=== PATIENT | male | born 1980 | race Caucasian/White ===

== ENCOUNTER 2019-01-10 08:36 | Emergency (ER) | payer BC ==
[~2019-01-10] VITALS: Ht 177.8 cm; Wt 72.6 kg
--- NOTE | 2019-01-10 08:44 | NUR ---
BIB SELF C/O NAUSEA AND VOMITING X5 STARTED 2 AM, +ABDOMINAL PAIN, ATE [facility] LAST NIGHT, TO ER BED 4, HOOKED TO MONITOR, NOTED DIAPHORETIC AND PALE, CHANGED TO HOSP GOWN, PROVIDED W WARM BLANKET, AWAITING MD RIVERS.
--- NOTE | 2019-01-10 08:55 | NUR ---
AT BEDSIDE FOR EVAL.
[2019-01-10] MEDS ORDERED: ONDANSETRON HCL/PF 4 MG/2 ML VIAL ONE (09:07)
[2019-01-10 09:08] LABS: BASOPHILS % (AUTO) 0.4 % (0.0-2.0); EOSINOPHILS % (AUTO) 0.4 % (0.0-6.0); HEMATOCRIT 49 % (39-51); HEMOGLOBIN 16.5 g/dL (13.5-17.5); LYMPHOCYTES # (AUTO) 0.6 /CMM (0.8-4.8); LYMPHOCYTES % (AUTO) 4.5 % (20.0-44.0); MEAN CORPUSCULAR HGB CONC 34 g/dl (31.0-36.0); MEAN CORPUSCULAR VOLUME 91 fL (80-96); MONOCYTES # (AUTO) 0.5 /CMM (0.1-1.30); MONOCYTES % (AUTO) 3.9 % (2.0-12.0); NEUTROPHILS # (AUTO) 12.5 /CMM (1.8-8.9); NEUTROPHILS % (AUTO) 90.8 % (43.0-81.0); PLATELET COUNT (AUTO) 246 /CMM (150-450); RED BLOOD CELL COUNT(AUTO) 5.35 MIL/uL (4.5-6.0); WHITE BLOOD COUNT (AUTO) 13.8 K/uL (4.3-11.0)
[2019-01-10] MEDS: IV NS 0.9% 1,000 ML BAG IV ONE (09:11)
[2019-01-10] MEDS: ONDANSETRON HCL/PF 4 MG/2 ML VIAL IVP ONE (09:11)
[2019-01-10 09:24] LABS: ALBUMIN 4.6 g/dL (3.4-5.0); BILIRUBIN,DIRECT 0.1 mg/dL (0.0-0.2); BILIRUBIN,TOTAL 0.8 mg/dL (0.2-1.0); CALCIUM, SERUM 9.6 mg/dL (8.5-10.1); CREATININE 1.4 mg/dL (0.6-1.3); POTASSIUM 4.1 mmol/L (3.5-5.1); TOTAL PROTEIN, SERUM 8.4 g/dL (6.4-8.2)
[2019-01-10 10:14] VITALS: BP 113/57
--- NOTE | 2019-01-10 10:14 | NUR ---
IV removed. Catheter intact and site benign. Pressure and 4x4 applied to site. No bleeding noted.Patient discharged to home in stable condition. Written and verbal after care instructions given. Patient verbalizes understanding of instruction.
== END 2019-01-10 10:15 | disposition home or self-care (01) ==
LOC: ER 08:40
DX: A05.9 Bacterial foodborne intoxication, unspecified (principal); R11.10 Vomiting, unspecified
CPT/HCPCS: 36415; 80048; 80076; 85025; 96361; 96374; 99283; J2405; J7030